=== PATIENT | male | born 1960 | race Caucasian/White ===

== ENCOUNTER 2025-01-12 08:55 | Outpatient (OUT) | payer BC, SELFPAY ==
--- OUTSIDE RECORDS SUMMARY | 2024-12-29 08:30 | XMS_ITS | Encounter Summary ---
Author Organization [facility] Address [address] [place] [address] Care Team Providers Care Sports Director Name Role Phone Stoney Bowser MD Unavailable [phone] Stoney Bowser MD Primary Care Provider [phone] Reason for Referral * Imaging (Routine) - AuthorizedSpecialtyDiagnoses / ProceduresReferred By ContactReferred To ContactRadiology Diagnoses Chest discomfort Palpitations Procedures Holter monitor Carlie Humphrey PA [address] [address] Phone: tel: fax: [facility] [address] [place] [address] Phone: tel: fax: Referral IDStatusReasonStart DateExpiration DateVisits RequestedVisits [id number]/14/20255/ * Medications - ClosedSpecialtyDiagnoses / ProceduresReferred By ContactReferred To Contact Diagnoses Type 2 diabetes mellitus with other specified complication, without long-term current use of insulin (HCC) Carlie Humphrey PA [address] [place] [address] Phone: tel: fax: Referral IDStatusReasonStart DateExpiration DateVisits RequestedVisits [id number] Reason for Visit * ReasonCommentsHeart Problem Encounter Details DateTypeDepartmentCare Team (Latest Contact Info)Jyeqfzzpvwb90/14/2025 8:30 AM ESTOffice Visit [facility] [place] [facility] [address] [place] [address] [place] [id number] Carlie Humphrey PA [address] [place] [address] [place] [address] Type 2 diabetes mellitus with other specified complication, without long-term current use of insulin (HCC) (Primary Dx); Chest discomfort; Palpitations Social History Tobacco UseTypesPacks/DayYears UsedDateSmoking Tobacco: Some DaysCigarettesLast attempted to quit: 1996CigarsSmokeless Tobacco: Never Tobacco Cessation:Ready to Q uit: Not Asked; Counseling Given: Not Answered Comments:No longer smoking cigarettes, smokes cigars occasionally Alcohol UseStandard Drinks/WeekCommentsNot Currently0 (1 standard drink = 0.6 oz pure alcohol)PHQ-2AnswerDate RecordedPatient Health Questionnaire-2 Score0 12/29/2024Sex and Gender InformationValueDate RecordedSex Assigned at BirthNot on fileLegal FegWxpc4304/29/2022 6:42 PM EDTGender IdentityNot on fileSexual OrientationNot on filedocumented as of this encounter Last Filed Vital Signs Vital SignReadingTime TakenCommentsBlood Zawiqabj129/7812/29/2024 8:59 AM EST Ttftk957012/29/2024 8:35 AM ESTTemperature--Respiratory Rate--Oxygen Mzpqzqhysw40% 12/29/2024 8:35 AM ESTInhaled Oxygen Concentration--Ftfgfo370 kg (224 lb) 12/29/2024 8:35 AM JWAVgwtgu405.3 cm (5' 9 )12/29/2024 8:35 AM ESTBody Mass Index33.0812/29/2024 8:35 AM ESTdocumented in this encounter Functional Status * Over the past 2 weeks, how often have you been bothered by any of the following problems?QuestionAnswerDate of AssessmentAuthorLittle interest or pleasure in doing thingsNot at all12/29/2024 7:33 AM Alea Ashley MA Feeling down, depressed, or hopelessNot at all12/29/2024 7:33 AM Alea Ashley MAPatient Health Questionnaire-2 Obdyk63602/29/2024 7:33 AM Alea Ashley MA documented as of this encounter Progress Notes * NONA Philippe - 12/29/2024 8:30 AM EST Images from the original note were not included. Subjective Patient ID: Roland Tirado is a 64 y.o. male who presents for Heart Problem. Pt stated this started a week ago on Wednesday and then again on Wednesday of this week, his chest felt weird, chest felt tight and fingers tingling and felt as if he was going to pass out, heart racing, last for about a half an hour then would go away. Pt also had SOB and blurred vision. 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 Denies any increased stress or any anxiety. Pt does smoke cigars off and on. Pt does NOT see a heel compressor. Drinks 6 bottles of water a day. Drinks beer on the weekends, not during the week. 8-10 in a sitting, just depends, up to 15. Did miss a few weeks of the Ozempic. Denies s/e. Heart Problem This is a new problem. Pertinent negatives include no abdominal pain, chest pain, chills, coughing,fatigue, fever, nausea, rash or vomiting. Over the past 2 weeks, how often have you been bothered by any of the following problems? Little interest or pleasure in doing things: Not at all Feeling down, depressed, or hopeless: Not at all Patient Health Questionnaire-2 Score: 0 Current Outpatient Medications on File Prior to Visit Medication Sig Dispense Refill rosuvastatin (Crestor) 10 MG tablet Take 1 tablet (10 mg) by mouth Daily 100 tablet 3 tadalafil (Cialis) 5 MG tablet Take 1 tablet (5 mg) by mouth Daily 90 tablet 1 [DISCONTINUED] Semaglutide,0.25 or 0.5MG/DOS, (Ozempic, 0.25 or 0.5 MG/DOSE,) 2 MG/3ML solution pen-injector Inject 0.5 mg as directed 1 (one) time per week 3 mL 11 No current facility-administered medications on file prior to visit. I have reviewed and reconciled the history and medication list with the patient today. No Known Allergies Social History Tobacco Use Smoking status: Some Days Current packs/day: 0.00 Types: Cigars, Cigarettes Last attempt to quit: 1995 Years since quittin.8 Smokeless tobacco: Never Tobacco comments: No longer smoking cigarettes, smokes cigars occasionally Vaping Use Vaping status: Never Used Substance Use Topics Alcohol use: Not Currently Drug use: Defer Family History Problem Relation Name Age of Onset Diabetes Mother Past Medical History: Diagnosis Date Diabetes mellitus (HCC) Hyperlipidemia Hypertension Past Surgical History: Procedure Laterality Date ARTHROCEN,ASP/INJ MED JOINT BURSA Left shoulder Visit Vitals BP 130/78 (BP Location: Left arm) Pulse 71 Ht 5' 9 Wt 224 lb SpO2 97% BMI 33.08 kg/m?? Smoking Status Some Days BSA 2.23 m?? Review of Systems Constitutional: Negative for chills, fatigue and fever. Respiratory: Negative for cough, shortness of breath and wheezing. Cardiovascular: Negative for chest pain, palpitations and leg swelling. Gastrointestinal: Negative for abdominal pain, constipation, diarrhea, nausea and vomiting. Skin: Negative for rash. Objective Physical Exam Constitutional: General: He is not in acute distress. Appearance: He is obese. HENT: Head: Normocephalic and atraumatic. Eyes: General: No scleral icterus. Cardiovascular: Rate and Rhythm: Normal rate and regular rhythm. Heart sounds: No murmur heard. Pulmonary: Effort: Pulmonary effort is normal. No respiratory distress. Breath sounds: Normal breath sounds. No wheezing, rhonchi or rales. Musculoskeletal: General: No swelling. Skin: General: Skin is warm and dry. Neurological: General: No focal deficit present. Mental Status: He is alert and oriented to person, place, and time. Psychiatric: Mood and Affect: Mood normal. Behavior: Behavior normal. Office Visit on 12/29/2024 Component Date Value Ref Range Status Hemoglobin A1C 12/29/2024 8.6 Final Assessment/Plan Diagnoses and all orders for this visit: Type 2 diabetes mellitus with other specified complication, without long-term current use of insulin (HCC) - POCT glycosylated hemoglobin (Hb A1C) docked device - semaglutide (Ozempic) 4 MG/3ML solution pen-injector; Inject 1 mg under the skin 1 (one) time perweek Advised pt that his HgbA1c did increase from 8.3 to 8.6. Will increase his Semaglutide to 1 mg weekly. Will recheck HgbA1c in 3 months. Goal is < 7%. Encouraged ETOH in moderation. Encouraged him to decrease the number of beers he drinks per sittingon the weekends. Discussed how alcohol can affect heart health. May also be contributing to his increased glucose. Chest discomfort - Holter monitor; Future Will obtain Holter Monitor for further evaluation at this time. ECG was done in the office and showed no signs of acute ischemic changes, was reviewed by Dr. Stoney Bowser. Did advise pt that if his symptoms were to worsen, he was to seek immediate evaluation in an ER. Palpitations - Holter monitor; Future See above. Follow up with NONA Dempsey in 3 months (on 03/29/2025 Diabetes). documented in this encounter Plan of Treatment DateTypeDepartmentCare Team (Latest Contact Info)Psblfyrvldx76/23/2026 8:30 AM ESTOffice Visit [facility] [place] [facility] [address] [facility] [address] [place] [phone] Stoney Bowser MD [address] [facility] [address] [place] [address] 03/30/2025 8:00 AM ESTOffice Visit [facility] [place] [facility] [address] [facility] [address] [place] [address] Carlie Humphrey PA [address] [facility] [address] [place] [address] NameTypePriorityAssociated DiagnosesOrder ScheduleHolter monitorImagingRoutine Chest discomfort Palpitations Expected: 12/29/2024 (Approximate), Expires: 12/29/2025documented as of this encounter Procedures Procedure NamePriorityDate/TimeAssociated DiagnosisCommentsPOCT GLYCOSYLATED HEMOGLOBIN (HGB A1C)Hugjrvu3412/29/2024 8:48 AM EST Type 2 diabetes mellitus with other specified complication, without long-term current use of insulin (HCC) documented in this encounter Results * (ABNORMAL) POCT glycosylated hemoglobin (Hb A1C) docked device (12/29/2024 8:48 AM EST)ComponentValueRef RangeTest MethodAnalysis TimePerformed At Pathologist SignatureHemoglobin A1C8.6Specimen (Source)Anatomical Location / LateralityCollection Method / VolumeCollection TimeReceived TimeBloodVenous blood specimen / Wfbuuap7912/29/2024 8:48 AM EST Narrative Authorizing ProviderResult TypeResult StatusCarlie Humphrey PAPOINT OF CARE TEST ENTER/EDIT ORDERABLESFinal Result documented in this encounter Visit Diagnoses Diagnosis Type 2 diabetes mellitus with other specified complication, without long-term current use of insulin (HCC)- Primary Chest discomfort Other chest pain Palpitations documented in this encounter Care Teams Team MemberRelationshipSpecialtyStart DateEnd Date Stoney Bowser MD [address] [facility] [address] [place] [address] PCP - Debbie Grajeda05/16/20 Stoney Bowser MD [address] [facility] [address] [place] [address] PCP - GeneralInternal Medicine08/20/22documented as of this encounter
--- OUTSIDE RECORDS SUMMARY | 2025-01-12 09:03 | XMS_ITS | Clinical Summary ---
Author Organization [facility] tem Address [id number] [address] [place] [address] Care Team Providers Care Gold Marker Name Role Phone Stoney Bowser MD Primary Care Provider [phone] Allergies No known active allergies Medications MedicationSigDispense QuantityRefillsLast FilledStart DateEnd DateStatus semaglutide (OZEMPIC) 0.25 mg or 0.5 mg(2 mg/1.5 mL) pen injector Inject 0.25 mg under the skin every 7 days.Active Social History Tobacco UseTypesPacks/DayYears UsedDateSmoking Tobacco: Some DaysCigarsSmokeless Tobacco: Never Tobacco Cessation:Ready to Q uit: Not Asked; Counseling Given: Not Answered Alcohol UseStandard Drinks/WeekCommentsYes0 (1 standard drink = 0.6 oz pure alcohol)ChildcareAnswerDate CfutgomnSuqchslcsMltskuv85/12/2019EmploymentAnswer Date BieeyjxuQxiwnahaukKlgojns24/12/2019Hunger ScreeningAnswerDate Recorded Within the past 12 months we worried whether our food would run out before we got money to buy more.Never True10/09/2024Within the past 12 months the food we bought just didn't last and we didn't have money to get more.Never True 10/09/2024Sex and Gender InformationValueDate RecordedSex Assigned at BirthNot on fileLegal GmpQwdn6409/20/2014 11:56 AM EDTGender IdentityNot on fileSexual OrientationNot on file Last Filed Vital Signs Vital SignReadingTime TakenCommentsBlood Lftbafnc943/8508 11:44 AM EDT Hzzey148910/09/2024 11:44 AM GFAUdvtnwzcylt80.8 ??C (98.2 ??F)10/09/2024 10:37 AM EDTRespiratory Whxy655910/09/2024 11:44 AM EDTOxygen Rwzcbsyqwv97%10/09/2024 11:44 AM EDTInhaled Oxygen Concentration--Frovsf818.1 kg (225 lb)10/09/2024 10:37 AM ELQDziiqy967.3 cm (5' 9 )10/09/2024 10:37 AM EDTBody Mass Index33.23010/09/2024 10:37 AM EDT Plan of Treatment Health MaintenanceDue DateLast DoneCommentsTobacco Imzdlchkzq45/14/1963 Depression Nmwxgrjvm47/14/1975Adult BMI Follow Up Plan1980DTaP,Tdap and Td Vaccines (1 - Tdap)1981Zoster (Shingles) Vaccine (1 of 2)2012 Influenza Guqucev9410/16/2024dult BMI Dafoovdev26Tobacco Rdjsxygml02RSV ( or age 60+ yrs) (1 - 1-dose 75+ series)2037 Medical Devices Not on file Insurance Care Teams Team MemberRelationshipSpecialtyStart DateEnd Date Stoney Bowser MD [address] [facility] [address] [place] [address] PCP - GeneralInternal Medicine10/09/24
--- OUTSIDE RECORDS SUMMARY | 2025-01-12 09:03 | XMS_ITS | Clinical Summary ---
Author Organization [facility] Address [address] [place] [address] Care Team Providers Care Extractor Tender Raw Stock Name Role Phone Stoney Bowser MD Unavailable [phone] Stoney Bowser MD Primary Care Provider [phone] Allergies No known active allergies Medications MedicationSigDispense QuantityRefillsLast FilledStart DateEnd DateStatus tadalafil (Cialis) 5 MG tablet Indications:Benign prostatic hyperplasia with incomplete bladder emptyingTake 1 tablet (5 mg) by mouth Daily 90 tablet 1075Active rosuvastatin (Crestor) 10 MG tablet Indications:Mixed hyperlipidemiaTake 1 tablet (10 mg) by mouth Daily 100 tablet 307/188355/6Active semaglutide (Ozempic) 4 MG/3ML solution pen-injector Indications:Type 2 diabetes mellitus with other specified complication, without long-term current use of insulin (HCC)Inject 1 mg under the skin 1 (one) time per week 9 mL 5Active Semaglutide,0.25 or 0.5MG/DOS, (Ozempic, 0.25 or 0.5 MG/DOSE,) 2 MG/3ML solution pen-injector Indications:Type 2 diabetes mellitus with other specified complication, without long-term current use of insulin (HCC)Inject 0.5 mg as directed 1 (one) time per week 3 mL 110511/Discontinued(Dose adjustment) Active Problems ProblemNoted DateDiagnosed DateClass 1 obesity due to excess calories with serious comorbidity and body mass index (BMI) of 34.0 to 34.9 in adult02/01/2024 Former goofsw0502/01/20249894Ewgbtce17/30/2024enign prostatic hyperplasia with lower urinary tract ehhbvgov13/05/2023Type 2 diabetes mellitus, without long-term current use of ehgbvsl0508/19/2022Mixed nmkxckaqrvxgic30/05/2023atellofemoral arthritis of right knee08/19/2022 Resolved Problems ProblemNoted DateDiagnosed DateResolved DateHypogonadism in male02/01/2024 09/08/2024enign essential hiymcxlnjszp78 Encounters DateTypeDepartmentCare TbhtNjkmhrftnrn47/19/2025bstract [facility] [address] [facility] [address] [place] [address] Stoney Bowser MD 12/29/2024 8:30 AM ESTOffice Visit [facility] [address] [facility] [address] [place] [phone] Carlie Humphrey PA Type 2 diabetes mellitus with other specified complication, without long-term current use of insulin (HCC) (Primary Dx); Chest discomfort; Gnpnfhnazluz49/14/1523Andxmk16/06/2025Patient Outreach [facility] [address] [place] [address] Alison Joaquin VOLCANOLOGY TEACHER 11/13/2024bstract [facility] [address] [facility] [address] [place] [address] Stoney Bowser MD 11/02/2024bstract [facility] [address] [facility] [address] [place] [address] Stoney Bowser MD 11/01/2024Telephone [facility] [address] [facility] [address] [place] [address] Stoney Bowser MD PA TADALIFILfrom Last 3 Months Family History Medical HistoryRelationNameCommentsDiabetesMotherRelationNameStatusComments Mother Social History Tobacco UseTypesPacks/DayYears UsedDateSmoking Tobacco: Some DaysCigarettesLast attempted to quit: 1995Cimokel Tobacco: Never Tobacco Cessation:Ready to Q uit: Not Asked; Counseling Given: Not Answered Comments:No longer smoking cigarettes, smokes cigars occasionally Alcohol UseStandard Drinks/WeekCommentsNot Currently0 (1 standard drink = 0.6 oz pure alcohol)PHQ-2AnswerDate RecordedPatient Health Questionnaire-2 Score0 12/29/2024Sex and Gender InformationValueDate RecordedSex Assigned at BirthNot on fileLegal XbbFobz7604/29/2022 6:42 PM EDTGender IdentityNot on fileSexual OrientationNot on file Last Filed Vital Signs Vital SignReadingTime TakenCommentsBlood Wbpzumzc478/7812/29/2024 8:59 AM EST Aepgu848612/29/2024 8:35 AM ESTTemperature--Respiratory Uzzg2991 9:51 AM EDTOxygen Oqckxnnaky30%12/29/2024 8:35 AM ESTInhaled Oxygen Concentration-- Rzdvex068 kg (224 lb)12/29/2024 8:35 AM IMLUfetco273.3 cm (5' 9 )12/29/2024 8:35 AM ESTBody Mass Index33.0812/29/2024 8:35 AM EST Plan of Treatment DateTypeDepartmentCare Team (Latest Contact Info)Tgxkwmjqkjx39/23/2026 8:30 AM ESTOffice Visit [facility] [address] [facility] [address] [place] [phone] Stoney Bowser MD [address] [facility] [address] [place] [address] 03/30/2025 8:00 AM ESTOffice Visit [facility] [address] [facility] [address] [place] [phone] Carlie Humphrey PA [address] [facility] [address] [place] [address] Health MaintenanceDue DateLast DoneCommentsCT Vdxwamdbkgyg66/14/1963Colonoscopy 1962FIT1962 8646Ivppeubxfsdti60/14/1963Pneumococcal Vaccine: Pediatrics (0 to 5 Years) and At-Risk Patients (6 to 64 Years) (1 of 2 - PCV)1981FOBT COVID-19 Vaccine (1 - 2024- season)2024Influenza Vaccine (#1)2024Diabetes: Retinopathy Eyrlclbdl40/16/589781/ Diabetes: Urine Protein Aocwsjfkp20/, 12/16/2022, 12/05/2021, Additional history existsDiabetes: Hemoglobin A1C/, 09/08/2024, 09/01/2024, Additional history existsColorectal Cancer Screening 03/22/2027FIT-DNA/06/2024, 05/08/2021, 06/07/2020 Procedures Procedure NamePriorityDate/TimeAssociated DiagnosisCommentsPOCT GLYCOSYLATED HEMOGLOBIN (HGB A1C)Xyqjoqp9512/29/2024 8:48 AM EST Type 2 diabetes mellitus with other specified complication, without long-term current use of insulin (HCC) LAB COLOGUARD?? COLON CANCER NRAULMHjdgoyv69/05/2025 8:30 PM EST Screening for malignant neoplasm of colon MICROALBUMIN / CREATININE URINE LPYUXCvolzrt09/25/2024 8:05 AM EDT Type 2 diabetes mellitus without complication, without long-term current use of insulin (HCC) Mixed hyperlipidemia DIABETIC RETINOPATHY SCREENING - OU - BOTH DFOQSvsbygu64/16/2023 FECAL GLOBIN BY IMMUNOCHEMISTRY ([id number])Dcehljd9812/15/2018 from Last 3 Months or Most Recently Relevant to Health Maintenance Results * (ABNORMAL) POCT glycosylated hemoglobin (Hb A1C) docked device (12/29/2024 8:48 AM EST)ComponentValueRef RangeTest MethodAnalysis TimePerformed At Pathologist SignatureHemoglobin A1C8.6Specimen (Source)Anatomical Location / LateralityCollection Method / VolumeCollection TimeReceived TimeBloodVenous blood specimen / Hiprkbo8112/29/2024 8:48 AM EST Narrative Authorizing ProviderResult TypeResult StatusCarlie Humphrey PAPOINT OF CARE TEST ENTER/EDIT ORDERABLESFinal Result * Cologuard?? colon cancer screening (03/22/2024 8:30 PM EST)ComponentValueRef RangeTest MethodAnalysis TimePerformed AtPathologist SignatureNONINV COLON CA DNA+OCC BLD SCRN STL-AQSNpbvohrbXlslgihh80/13/2025 4:03 AM [facility] (CLIA #:[id number])Comment: NEGATIVE TEST RESULT. A negative Cologuard result indicates a low likelihood that a colorectal cancer (CRC) or advanced adenoma (adenomatous polyps with more advanced pre-malignant features) ??is present. The chance that a person with a negative Cologuard test has a colorectal cancer is less than 1in 1500 (negative predictive value >99.9%) or has an advanced adenoma is less than 5.3% (negative predictive value 94.7%). These data are based on a prospective cross-sectional study of 10,000individuals at average risk for colorectal cancer who were screened with both Cologuard and colonoscopy. (Andrea Sanchez al, N Engl J Med 2014;370(14):9936-5704) The normal value (reference range) for this assay is negative. COLOGUARD RE-SCREENING RECOMMENDATION: Periodic colorectal cancer screening is an important part ofpreventive healthcare for asymptomatic individuals at average risk for colorectal cancer. ??Following a negative Cologuard result, the [place] [employer] and U.S. Multi-Society Task Force screening guidelines recommend a Cologuard re-screening interval of 3 years. References: [place] [employer] Guideline for Colorectal Cancer Screening: https://www.cancer.or g/cancer/bchxn-pkarik-rwgaoo/wrtwtrtne-zyfagxcrv-vdhwrds/acs-recommendations.htm dangelo PETERSON, Promise JAMA, Marilu THOMAS, Colorectal Cancer Screening: Recommendations for Physicians and Patients from the U.S. Multi-Society Task Force on Colorectal Cancer Screening , Am J Gastroenterology 2017; 112:1970-2279. TEST DESCRIPTION: Composite algorithmic analysis of stool DNA-biomarkers with hemoglobin immunoassay. ?? Quantitative values of individual biomarkers are not reportable and are not associated with individual biomarker result reference ranges. Cologuard is intended for colorectal cancer screening ofadults of either sex, 45 years or older, who are at average-risk for colorectal cancer (CRC). Cologuard has been approved for use by the U.S. FDA. The performance of Cologuard was established in a cross sectional study of average-risk adults aged 50-84. Cologuard performance in patients ages 45 to 49 years was estimated by sub-group analysis of near-age groups. Colonoscopies performed for a positive result may find as the most clinically significant lesion: colorectal cancer [4.0%], advanced adenoma (including sessile serrated polyps greater than or equal to 1cm diameter) [20%] or non- advanced adenoma [31%]; or no colorectal neoplasia [45%]. These estimates are derived from a prospective cross-sectional screening study of 10,000 individuals at average risk for colorectal cancer who were screened with both Cologuard and colonoscopy. (Andrea Elmore et al, N Engl J Med 2014;370(14):5326-6448.) Cologuard may produce a false negative or false positive result (no colorectal cancer or precancerous polyp present at colonoscopy follow up). A negative Cologuard test result does not guarantee the absence of CRC or advanced adenoma (pre-cancer). The current Cologuard screening interval is every 3 years. ([place] [employer] and U.S. Multi-Society Task Force). Cologuard performance data in a 10,000 patient pivotal study using colonoscopy as the reference method can be accessed at the following location: www.[employer].TransEngen/results. Additional description of the Cologuard test process, warnings and precautions can be found at www.[employer]M Benchmark[employer].com. Specimen (Source)Anatomical Location / LateralityCollection Method / Volume Collection TimeReceived TimeStool specimen (specimen)03/22/2024 8:30 PM EST 03/24/2024 1:18 PM EST Narrative Authorizing ProviderResult TypeResult StatusCarlie MCCALLUM MOLECULAR DIAGNOSTICS ORDERABLESFinal ResultPerforming OrganizationAddressCity/State/ZIP CodePhone Number [employer] (CLIA #:[id number]) [place] [address], * Microalbumin / creatinine, urine ratio (11/10/2023 8:05 AM EDT)ComponentValue Ref RangeTest MethodAnalysis TimePerformed AtPathologist SignatureCREATININE, RANDOM MDEUD93485 - 320 mg/dLQUESTALBUMIN, URINE4.3See Note: mg/dLQUEST Comment: Reference Range: Reference Range Not established ALBUMIN/CREATININE RATIO, RANDOM URINE24<30 mg/g creatQUESTComment: The ADA defines abnormalities in albumin excretion as follows: Albuminuria Category ?Result (mg/g creatinine) Normal to Mildly increased <30 Moderately increased ? 30-299 Severely increased > OR = 300 The ADA recommends that at least two of three specimens collected within a 3-6 month period be abnormal before considering a patient to be within a diagnostic category. Specimen (Source)Anatomical Location / LateralityCollection Method / Volume Collection TimeReceived TimeUrineUrine specimen obtained by clean catch procedure / Zswxxtb4111/10/2023 8:05 AM EDT11/10/2023 3:42 PM EDT Narrative [facility] - 11/11/2023 12:57 PM EDT FASTING:YES FASTING: YES Resulting Agency Comment Performing Organization Information ?Site ID: [id number] ?Name: [facility] ?Address: [address] [place] [id number] ?Director: Brent Manzano MD Authorizing ProviderResult TypeResult StatusStoney VIVEROS URINE ORDERABLESFinal ResultPerforming OrganizationAddressCity/State/ZIP CodePhone Number [facility] * Diabetic Retinopathy Screening - OU - Both Eyes (10/31/2022)ComponentValueRef RangeTest MethodAnalysis TimePerformed AtPathologist SignatureRESULTSndr Anatomical RegionLateralityModalityHeadOtherSpecimen (Source)Anatomical Location / LateralityCollection Method / VolumeCollection TimeReceived Time 10/31/2022 Narrative Authorizing ProviderResult TypeResult StatusStoney Bowser [facility] Final Result * FECAL GLOBIN BY IMMUNOCHEMISTRY ([id number]) (12/15/2018)ComponentValueRef Range Test MethodAnalysis TimePerformed AtPathologist SignatureFECAL GLOBIN BY IMMUNOCHEMISTRYSEE NOTENOMS LEGACY EXTERNAL LABComment: ??FECAL GLOBIN BY IMMUNOCHEMISTRY ??MICRO NUMBER: ?[id number] ??TEST STATUS: ? FINAL ??SPECIMEN SOURCE: ?? INSURE (TM) FOBT TEST CARD ??SPECIMEN QUALITY: ??ADEQUATE ??Fecal Globin: ?Not Detected Specimen (Source)Anatomical Location / LateralityCollection Method / Volume Collection TimeReceived Time12/15/2018 Narrative Authorizing ProviderResult TypeResult StatusDaniroosevelt Bowser MDECW LABSFinal ResultPerforming OrganizationAddressCity/State/ZIP CodePhone Number [facility] from Last 3 Months or Most Recently Relevant to Health Maintenance Insurance Care Teams Team MemberRelationshipSpecialtyStart DateEnd Stoney Bowser MD [address] [facility] [address] [place] [address] PCP - [facility]05/16/20 Stoney Bowser MD [address] [facility] [address] [place] [address] PCP - GeneralInternal Medicine08/20/22
--- OUTSIDE RECORDS SUMMARY | 2025-01-12 09:03 | XMS_ITS | Encounter Summary ---
Author Organization [facility] Address [address] [place] [address] Care Team Providers Care Insulation Supervisor Name Role Phone Stoney Bowser MD Unavailable [phone] Stoney Bowser MD Primary Care Provider [phone] Encounter Details DateTypeDepartmentCare Team (Latest Contact Info)Acxqwpplkpv86/14/2025Travel Social History Tobacco UseTypesPacks/DayYears UsedDateSmoking Tobacco: Some DaysCigarettesLast attempted to quit: 1996CigarsSmokeless Tobacco: Never Comments:No longer smoking c igarettes, smokes cigars occasionally Alcohol UseStandard Drinks/WeekCommentsNot Currently0 (1 standard drink = 0.6 oz pure alcohol)PHQ-2AnswerDate RecordedPatient Health Questionnaire-2 Score0 12/29/2024Sex and Gender InformationValueDate RecordedSex Assigned at BirthNot on fileLegal XqlOqxh4304/29/2022 6:42 PM EDTGender IdentityNot on fileSexual OrientationNot on filedocumented as of this encounter Functional Status * Over the past 2 weeks, how often have you been bothered by any of the following problems?QuestionAnswerDate of AssessmentAuthorLittle interest or pleasure in doing thingsNot at all12/29/2024 7:33 AM Alea Ashley MA Feeling down, depressed, or hopelessNot at all12/29/2024 7:33 AM Alea Ashley MAPatient Health Questionnaire-2 Volof36702/29/2024 7:33 AM Alea Ashley MA documented as of this encounter Plan of Treatment DateTypeDepartmentCare Team (Latest Contact Info)Jljtypofkmv70/23/2026 8:30 AM ESTOffice Visit [facility] [place] [facility] [address] [place] [address] [place] [address] Stoney Bowser MD [address] [place] [address] [place] [address] 03/30/2025 8:00 AM ESTOffice Visit [facility] [place] [facility] [address] [place] [address] [place] [address] Carlie Humphrey PA [address] [facility] [address] [place] [address] documented as of this encounter Visit Diagnoses Not on filedocumented in this encounter Care Teams Team MemberRelationshipSpecialtyStart DateEnd Date Stoney Bowser MD [address] [facility] [address] [place] [address] PCP - Debbie Grajeda05/16/20 Stoney Bowser MD [address] [place] [address] [place] [address] PCP - GeneralInternal Medicine08/20/22documented as of this encounter
--- OUTSIDE RECORDS SUMMARY | 2025-01-12 09:03 | XMS_ITS | Encounter Summary ---
Author Organization [facility] Address [address] [place] [address] Care Team Providers Care Back Tacker Name Role Phone Stoney Bowser MD Unavailable [phone] Stoney Bowser MD Primary Care Provider [phone] Encounter Details DateTypeDepartmentCare Team (Latest Contact Info)Rddqhdbpqvw44/19/2025bstract [facility] [place] [facility] [address] [place] [address] [place] [address] Stoney Bowser MD [address] [place] [address] [place], [place] [id number] Social History Tobacco UseTypesPacks/DayYears UsedDateSmoking Tobacco: Some DaysCigarettesLast attempted to quit: 1996CigarsSmokeless Tobacco: Never Comments:No longer smoking c igarettes, smokes cigars occasionally Alcohol UseStandard Drinks/WeekCommentsNot Currently0 (1 standard drink = 0.6 oz pure alcohol)PHQ-2AnswerDate RecordedPatient Health Questionnaire-2 Score0 12/29/2024Sex and Gender InformationValueDate RecordedSex Assigned at BirthNot on fileLegal KopFles7704/29/2022 6:42 PM EDTGender IdentityNot on fileSexual OrientationNot on filedocumented as of this encounter Plan of Treatment DateTypeDepartmentCare Team (Latest Contact Info)Nsjkuyerllq35/23/2026 8:30 AM ESTOffice Visit [facility] [place] [facility] [address] [place] [address] [place] [address] Stoney Bowser MD [address] [place] [address] [place] [address] 03/30/2025 8:00 AM ESTOffice Visit [facility] [place] [facility] [address] [place] [address] [place] [address] Carlie Humphrey PA [address] [place] [address] [place] [address] documented as of this encounter Visit Diagnoses Not on filedocumented in this encounter Care Teams Team MemberRelationshipSpecialtyStart DateEnd Date Stoney Bowser MD [address] [facility] [address] [place] [address] PCP - Debbie Grajeda05/16/20 Stoney Bowser MD [address] [facility] [address] [place] [address] PCP - GeneralInternal Medicine08/20/22documented as of this encounter
== END 2025-01-12 08:56 | disposition home or self-care (01) ==
LOC: CARD 09:00
PROVIDERS: PCP Internal Medicine; Visit Provider Physician Assistant
DX: R07.89 Other chest pain (principal); R00.2 Palpitations
CPT/HCPCS: 93246